=== PATIENT | female | born 1970 | race Caucasian/White ===

== ENCOUNTER 2018-02-03 17:29 | Emergency (ER) | payer OTHER ==
[~2018-02-03] VITALS: Ht 162.6 cm; Wt 81.7 kg
[~2018-02-03 17:29] MED LIST: AMBIEN 10 MG TA10 MG PO; BACTRIM 400-801 EACH PO; EFFEXOR XR150 MG PO; FLEXERIL PO; GRALISE300 MG PO; GRALISE600 MG PO; HYDROCODONE-APA1 TA1 PO; NORCO 5-325 TA1 EACH; NORCO 5-325 TA1 EACH PO; OXYCONTIN10 M1 PO; PHENERGAN 25 MG25 M1 PO; ROBAXIN500 MG PO; ZANAFLEX4 M1 PO; ZANTAC 150MG T150 M1 PO; ZYRTEC10 M2 PO
[2018-02-03] MEDS ORDERED: CAMBIA50 MG PO (17:39)
[2018-02-03] MEDS ORDERED: HYDROCODONE-AP1 EAC6 PO (18:03)
[2018-02-03 18:32] VITALS: BP 131/86
== END 2018-02-03 18:32 | disposition home or self-care (01) ==
LOC: M.ERS 17:29
DX: S82.431A Displaced oblique fracture of shaft of right fibula, initial encounter for closed fracture (principal); S82.54XA Nondisplaced fracture of medial malleolus of right tibia, initial encounter for closed fracture; Z90.710 Acquired absence of both cervix and uterus; Z90.49 Acquired absence of other specified parts of digestive tract; Z98.890 Other specified postprocedural states; W10.8XXA Fall (on) (from) other stairs and steps, initial encounter; Y93.89 Activity, other specified; Y92.89 Other specified places as the place of occurrence of the external cause; Y99.8 Other external cause status

== ENCOUNTER 2018-03-09 18:33 | Emergency (ER) | payer OTHER ==
[~2018-03-09] VITALS: Ht 162.6 cm; Wt 77.1 kg
[~2018-03-09 18:33] MED LIST changes: +CAMBIA50 MG PO; +HYDROCODONE-AP1 EAC6 PO
[2018-03-09] MEDS ORDERED: VISTARIL 25 MG25 M1 PO (18:52)
[2018-03-09 19:36] VITALS: BP 119/83
== END 2018-03-09 19:37 | disposition home or self-care (01) ==
LOC: M.ERS 18:33
DX: Z46.89 Encounter for fitting and adjustment of other specified devices (principal); M79.7 Fibromyalgia; G43.909 Migraine, unspecified, not intractable, without status migrainosus; Z90.710 Acquired absence of both cervix and uterus; Z90.49 Acquired absence of other specified parts of digestive tract

== ENCOUNTER 2018-08-16 23:59 | Inpatient (IN) | payer OTHER ==
[~2018-08-16] VITALS: Ht 162.6 cm; Wt 81.2 kg
[~2018-08-16 23:59] MED LIST changes: +VISTARIL 25 MG25 M1 PO
[2018-08-17] VITALS (9 sets, daily range): BP systolic 117–141; BP diastolic 63–95
[2018-08-17] MEDS ORDERED: RESTORIL30 MG PO (00:14)
[2018-08-17 00:26] LABS: URINE BILIRUBIN NEGATIVE (Negative); URINE BLOOD NEGATIVE (Negative); URINE CLARITY CLEAR; URINE COLOR YELLOW; URINE GLUCOSE-RANDOM 3+ (Negative); URINE KETONES NEGATIVE (Negative); URINE LEUKOCYTES NEGATIVE (Negative); URINE NITRITE NEGATIVE (Negative); URINE PROTEIN NEGATIVE (Negative); URINE UROBILINOGEN 0.2 E.U./dl (0.2-1.0)
[2018-08-17 00:35] LABS: AMP/METHAMP Negative (Negative); BARBITURATES Negative (Negative); BENZODIAZEPINES Negative (Negative); COCAINE Negative (Negative); METHADONE Negative (Negative); OPIATES Negative (Negative); PCP Negative (Negative); THC Negative (Negative)
[2018-08-17 00:36] LABS: ABSOLUTE BASOPHILS 0.1 thou/uL (0.0-0.2); ABSOLUTE EOSINOPHILS 0.1 thou/uL (0.0-0.7); ABSOLUTE LYMPHOCYTES 1.6 thou/uL (0.8-5.3); ABSOLUTE MONOCYTES 0.3 thou/uL (0.0-1.2); ABSOLUTE NEUTROPHILS 6.1 thou/uL (1.6-8.1); BASOPHILS 1.2 %; EOSINOPHILS 0.7 %; HEMATOCRIT 41.1 % (37.0-47.0); HEMOGLOBIN 14.1 gm/dL (12.0-15.0); LYMPHOCYTES 19.8 %; MCH 31.5 pg (26.0-34.0); MCHC 34.3 g/dL (28.0-37.0); MCV 91.9 fL (80.0-100.0); MONOCYTES 3.1 %; MPV 8.6 fl. (7.2-11.1); NUCLEATED RBCS 0 /100WBC; PLATELET COUNT* 330 thou/uL (150-400); POLYS 75.2 %; RBC 4.47 mil/uL (4.20-5.00); RDW-CV 12.7 % (10.5-14.5); WBC 8.2 thou/uL (4.0-11.0)
[2018-08-17 00:44] LABS: CALCIUM 8.6 mg/dL (8.5-10.1); POTASSIUM 4.7 mmol/L (3.5-5.1)
--- NOTE | 2018-08-17 06:27 | NUR ---
RECEIVED REPORT FROM ED NURSE. PT TRANSFERRED TO 205. PT A&OX4 AND RESTLESS. VSS. ADMISSION HISTORY AND PHYSICAL ASSESSMENT COMPLETED AND CHARTED. ORIENTED TO ROOM AND CALL LIGHT. PT COMPLAINED OF HIP AND ANKLE PAIN-PAIN MEDS GIVEN PER. ON INSULIN DRIP-TITRATED PER PROTOCOL. WOUNDS ON RIGHT ARM, RIGHT UPPER SHOULDER, LEFT EAR, AND ON UPPER LIP NOTED.BUG BITES CLAIMED BY PT. PHOTOGRAPH TAKEN. CALL LIGHT WITHIN REACH. BED IN LOW POSITION. BED ALARM ON.
[2018-08-17 08:47] LABS: HEMATOCRIT 40.3 % (37.0-47.0); HEMOGLOBIN 13.6 gm/dL (12.0-15.0); MCH 30.7 pg (26.0-34.0); MCHC 33.6 g/dL (28.0-37.0); MCV 91.4 fL (80.0-100.0); MPV 8.9 fl. (7.2-11.1); RBC 4.41 mil/uL (4.20-5.00); RDW-CV 12.7 % (10.5-14.5); WBC 10.6 thou/uL (4.0-11.0)
[2018-08-17 08:57] LABS: ALBUMIN 3.3 g/dL (3.4-5.0); CALCIUM 8.7 mg/dL (8.5-10.1); CREATININE 0.7 mg/dL (0.6-1.3); TOTAL BILIRUBIN 0.3 mg/dL (<0.1-1.0); TOTAL PROTEIN 7.4 g/dL (6.4-8.2)
[2018-08-17 08:58] LABS: POTASSIUM 3.7 mmol/L (3.5-5.1)
--- NOTE | 2018-08-17 09:34 | NUR ---
ASSUMED CARE OF PT THIS AM AROUND 0715- SWEEPING COMPOUND BLENDER IN PLACE ORDERED, TRACING ST THIS AM- UPON ASSESSMENT PT NOTED TO BE RESTING IN BED- PT A&O X4, ANXIOUS- CONTINENT OF BOWEL AND BLADDER- UP AD-PATRICE WITH STEADY GAIT NOTED- LCTA, RESP EVEN AND UN-LABORED- VSS, O2 SAT 96% ON RA- ABDOMEN SOFT/ROUND/NON-TENDER, BS X 4 QUADS- IV NOTED TO RIGHT AC INTACT, IVF INFUSSING PRESCIBED- PT NOTED TO BE Q1 HOUR ACCU CHECKS WITH INSULIN DRIP INFUSSING PRESCIBED THIS AM- INSULIN DRIP NOTED TO BE INFUSSING AT 8.5 THIS AM WITH 0800 BS NOTED TO BE 256- PER INSULIN PROTOCOL INSULIN DRIP THEN INCREASED TO 10UNITS/HR AT 0820, BUT THEN INSULIN DRIP NOTED TO BE D/C'D PER WITH SSI AND SCHEDULED LASNTUS ORDERED, BS THEN CHANGED TO ACHS- INSULIN DRIP D/C'D AT 0845- CARB CONTRO DIET IN PLACE WITH ORAL METFORMIN AND LANTUS GIVEN THIS AM PRESCIBED- PT NOTED TO HAVE REPORTED BUG BITES TO RUE/SHOULDER/AND UPPER LIP- RATES PAIN 6/10 TO BLE- REPOSITIONING IN PLACE-CALL LIGHT AND PERSONAL BELONGINGS WITH IN REACH- HOURLY ROUNDS IN PLACE R/T SAFETY/NEEDS- ALL NEEDS MET AT THIS TIME-WCTM
[2018-08-17] MEDS ORDERED: COMPLETE OMEGA1 EACH PO (16:54)
[2018-08-17] MEDS ORDERED: BENTYL 20 MG TA20 M1 PO (16:56)
[2018-08-17] MEDS ORDERED: TIZANIDINE HCL4 M1 PO (17:00)
[2018-08-17] MEDS ORDERED: TURMERIC500 M2 PO (17:00)
[2018-08-17] MEDS ORDERED: BIOTIN10000 MC1 PO (17:01)
[2018-08-17] MEDS ORDERED: OXYBUTYNIN 5 MG5 M2 PO (17:03)
--- NOTE | 2018-08-17 17:07 | NUR ---
PT CURRENTLY RESTING IN BED, EATING DINNER- LAWYER CRIMINAL IN PLACE ORDERED, TRACING SR- IV TO RIGHT AC INTACT AND SL- NEW 2O GAUGE IV PLACED THIS SHIFT RO LEFT HAND, IVF NOTED TO BE D/C'D THIS SHIFT- PT C/O BLE LEG PAIN THIS SHIFT, PRN PERCOCET AND GABAPENTIN GIVEN AT 1101; PT REPORTS MEDICATIONS TO BE EFFECTIVE- BLE US COMPLETED THIS SHIFT PRESCIBED, NEGATIVE FOR DVT NOTED ON RESULTS- BS MONITORED ORDERED, PO AND SSI GIVEN PRESCIBED- CALL LIGHT AND PERSONAL BELONGINGS WITH IN REACH- ALL NEEDS MET AT THIS TIME-WCTM
[2018-08-17] MEDS ORDERED: AMBIEN 5 MG TABL5 M1 PO ×2 (20:57→20:58)
[2018-08-17 21:06] LABS: GLYCOHEMOGLOBIN (HGB A1C) 8.4 % (4.8-5.6)
[2018-08-18] VITALS: BP 138/84
[2018-08-18 04:00] VITALS: BP 147/80
[2018-08-18 04:43] LABS: ABSOLUTE EOSINOPHILS 0.1 thou/uL (0.0-0.7); ABSOLUTE LYMPHOCYTES 3.5 thou/uL (0.8-5.3); ABSOLUTE MONOCYTES 0.4 thou/uL (0.0-1.2); ABSOLUTE NEUTROPHILS 4.8 thou/uL (1.6-8.1); BASOPHILS 0.3 %; HEMATOCRIT 39.6 % (37.0-47.0); HEMOGLOBIN 13.5 gm/dL (12.0-15.0); LYMPHOCYTES 39.5 %; MCV 91.2 fL (80.0-100.0); MONOCYTES 4.6 %; MPV 8.7 fl. (7.2-11.1); NUCLEATED RBCS 0 /100WBC; PLATELET COUNT* 330 thou/uL (150-400); POLYS 54.6 %; RBC 4.34 mil/uL (4.20-5.00); RDW-CV 13.4 % (10.5-14.5); WBC 8.7 thou/uL (4.0-11.0)
[2018-08-18 04:53] LABS: CALCIUM 8.8 mg/dL (8.5-10.1); CREATININE 0.8 mg/dL (0.6-1.3)
[2018-08-18 07:55] VITALS: BP 137/72
[2018-08-18 11:30] VITALS: BP 144/90
[2018-08-18 15:45] VITALS: BP 125/79
--- NOTE | 2018-08-18 18:10 | NUR ---
PT CURRENTLY RESTING IN BED, WATCHING TV- BRUSHER HAND INTACT INDICATED, TRACING SR- IV TO RIGHT AC D/C'D THIS SHIFT, LEFT HAND IV INTACT AND SL- BS MONITORED ORDERED, ORAL MEDICATIONS ALONG WITH SSI GIVEN PRESCIBED- BS NOTED TO BE MORE CONTROLED THIS SHIFT- GOOD PO INTAKE NOTED THIS SHIFT WITH MEALS- PRN PERCOCET GIVEN THIS SHIFT X2 AT 0822 AND 1805 FOR C/O HEADACHE, PT REPORTS MEDICATIONS TO BE EFFECTIVE- CALL LIGHT AND PERSONAL BELONGINGS WITH IN REACH- PT MAKES NEEDS KNOWN- ALL NEEDS MET AT THIS TIME-WCTM
[2018-08-18 20:00] VITALS: BP 131/93
[2018-08-19] VITALS: BP 130/76
[2018-08-19 04:00] VITALS: BP 126/88
[2018-08-19 04:45] LABS: ABSOLUTE BASOPHILS 0.1 thou/uL (0.0-0.2); ABSOLUTE EOSINOPHILS 0.1 thou/uL (0.0-0.7); ABSOLUTE LYMPHOCYTES 2.6 thou/uL (0.8-5.3); ABSOLUTE MONOCYTES 0.3 thou/uL (0.0-1.2); ABSOLUTE NEUTROPHILS 3.3 thou/uL (1.6-8.1); BASOPHILS 1.1 %; EOSINOPHILS 1.8 %; HEMATOCRIT 40.8 % (37.0-47.0); MCH 31.2 pg (26.0-34.0); MCHC 34.2 g/dL (28.0-37.0); MCV 91.1 fL (80.0-100.0); MONOCYTES 4.3 %; MPV 8.6 fl. (7.2-11.1); NUCLEATED RBCS 0 /100WBC; PLATELET COUNT* 325 thou/uL (150-400); POLYS 51.8 %; RBC 4.48 mil/uL (4.20-5.00); RDW-CV 13.6 % (10.5-14.5); WBC 6.4 thou/uL (4.0-11.0)
[2018-08-19 04:58] LABS: ALBUMIN 3.2 g/dL (3.4-5.0); CALCIUM 9.6 mg/dL (8.5-10.1); CREATININE 0.8 mg/dL (0.6-1.3); POTASSIUM 4.2 mmol/L (3.5-5.1); TOTAL BILIRUBIN 0.3 mg/dL (<0.1-1.0); TOTAL PROTEIN 6.8 g/dL (6.4-8.2)
--- NOTE | 2018-08-19 08:32 | NUR ---
PATIENT RESTING IN BED. REPORT GIVEN TO ONCOMING NURSE. WILL MONITOR.
--- NOTE | 2018-08-19 09:34 | NUR ---
VSS, ASSUMED CARE OF PT IN AM, ASSESSMENT PERFORMED AND CHARTED, FALL PRECAUTIONS IN PLACE AND CALL LIGHT IN RECAH, PT IS A&O4 ON RA, UP AD PATRICE, TRACING SR ON THE MONITOR, PT GOAL IS TO D/C TO HOME, AND GET EDUCATED ABOUT NEW MEDS, AT THIS TIME I HAVE D/C ORDERS, IV AND TELE MONITOR TAKEN OFF, I HAVE FILLED OUT D/C ORDERS, PROVITED D/C INFORMATION WITH NEW MED SCRIPTS, AND INFOR SHEETS, PT DENIES ANY QUESTIONS AT TIME OF D/C WILL FOLOW WITH PLAN OF CARE.
[2018-08-19 09:44] VITALS: BP 126/88
[2018-08-19] MEDS ORDERED: HUMALOG100 UNIT/1 SUBQ (09:52)
[2018-08-19] MEDS ORDERED: LANTUS SUBQ (09:54)
[2018-08-19] MEDS ORDERED: METFORMIN HCL500 MG PO (10:02)
== END 2018-08-19 12:30 | disposition home or self-care (01) | DRG 638 ==
LOC: M.ERS 23:59 → M.2W 08-17 03:30 → M.TBA-ER 08-17 03:30 → M.2W 08-17 05:01
PROVIDERS: Emergency Medicine; ADMIT Internal Medicine
DX: E11.00 Type 2 diabetes mellitus with hyperosmolarity without nonketotic hyperglycemic-hyperosmolar coma (NKHHC) (principal); E87.1 Hypo-osmolality and hyponatremia; E86.0 Dehydration; E11.40 Type 2 diabetes mellitus with diabetic neuropathy, unspecified; G47.00 Insomnia, unspecified; G25.81 Restless legs syndrome; M79.7 Fibromyalgia; G43.909 Migraine, unspecified, not intractable, without status migrainosus; Z90.49 Acquired absence of other specified parts of digestive tract; Z90.710 Acquired absence of both cervix and uterus; Z83.3 Family history of diabetes mellitus; Z87.81 Personal history of (healed) traumatic fracture; Z80.9 Family history of malignant neoplasm, unspecified; Z79.899 Other long term (current) drug therapy

== ENCOUNTER 2018-08-19 20:59 | Emergency (ER) | payer OTHER ==
[~2018-08-19] VITALS: Ht 162.6 cm; Wt 81.7 kg
[~2018-08-19 20:59] MED LIST changes: +AMBIEN 5 MG TABL5 M1 PO; +BENTYL 20 MG TA20 M1 PO; +BIOTIN10000 MC1 PO; +COMPLETE OMEGA1 EACH PO; +HUMALOG100 UNIT/1 SUBQ; +LANTUS SUBQ; +METFORMIN HCL500 MG PO; +OXYBUTYNIN 5 MG5 M2 PO; +RESTORIL30 MG PO; +TIZANIDINE HCL4 M1 PO; +TURMERIC500 M2 PO
[2018-08-19 21:54] LABS: ABSOLUTE BASOPHILS 0.1 thou/uL (0.0-0.2); ABSOLUTE EOSINOPHILS 0.1 thou/uL (0.0-0.7); ABSOLUTE LYMPHOCYTES 1.8 thou/uL (0.8-5.3); ABSOLUTE MONOCYTES 0.3 thou/uL (0.0-1.2); ABSOLUTE NEUTROPHILS 4.9 thou/uL (1.6-8.1); BASOPHILS 0.8 %; HEMATOCRIT 44.2 % (37.0-47.0); HEMOGLOBIN 15.1 gm/dL (12.0-15.0); MCH 30.8 pg (26.0-34.0); MCHC 34.1 g/dL (28.0-37.0); MCV 90.3 fL (80.0-100.0); MONOCYTES 4.4 %; MPV 8.3 fl. (7.2-11.1); NUCLEATED RBCS 0 /100WBC; PLATELET COUNT* 377 thou/uL (150-400); POLYS 68.8 %; RDW-CV 12.9 % (10.5-14.5); WBC 7.1 thou/uL (4.0-11.0)
[2018-08-19 22:06] LABS: CALCIUM 9.5 mg/dL (8.5-10.1); CREATININE 0.7 mg/dL (0.6-1.3); POTASSIUM 3.8 mmol/L (3.5-5.1)
[2018-08-19 22:10] LABS: ALBUMIN 3.8 g/dL (3.4-5.0); TOTAL BILIRUBIN 0.4 mg/dL (<0.1-1.0); TOTAL PROTEIN 8.3 g/dL (6.4-8.2)
[2018-08-20 00:34] VITALS: BP 134/91
== END 2018-08-20 00:36 | disposition home or self-care (01) ==
LOC: M.ERS 20:59
PROVIDERS: Nurse Practitioner Family
DX: R51 Headache (principal); M79.7 Fibromyalgia; G25.81 Restless legs syndrome; Z90.49 Acquired absence of other specified parts of digestive tract; Z90.710 Acquired absence of both cervix and uterus

== ENCOUNTER 2018-10-10 09:50 | Inpatient (IN) | payer OTHER ==
[2018-10-10] VITALS (7 sets, daily range): BP systolic 143–163; BP diastolic 76–103
[~2018-10-10] VITALS: Ht 162.6 cm; Wt 76.7 kg
[2018-10-10 10:30] LABS: URINE BILIRUBIN NEGATIVE (Negative); URINE BLOOD NEGATIVE (Negative); URINE CLARITY CLEAR; URINE COLOR YELLOW; URINE GLUCOSE-RANDOM NEGATIVE (Negative); URINE KETONES NEGATIVE (Negative); URINE LEUKOCYTES-REFLEX TRACE (Negative); URINE NITRITE-REFLEX NEGATIVE (Negative); URINE PROTEIN NEGATIVE (Negative); URINE SPECIFIC GRAVITY 1.015 (1.005-1.030); URINE UROBILINOGEN 0.2 E.U./dl (0.2-1.0)
[2018-10-10] MEDS ORDERED: NORCO 10-325 T1 EACH PO (10:30)
[2018-10-10 10:35] LABS: ABSOLUTE BASOPHILS 0.1 thou/uL (0.0-0.2); ABSOLUTE EOSINOPHILS 0.1 thou/uL (0.0-0.7); ABSOLUTE LYMPHOCYTES 2.5 thou/uL (0.8-5.3); ABSOLUTE MONOCYTES 0.5 thou/uL (0.0-1.2); ABSOLUTE NEUTROPHILS 5.2 thou/uL (1.6-8.1); BASOPHILS 0.6 %; EOSINOPHILS 0.9 %; HEMATOCRIT 43.5 % (37.0-47.0); HEMOGLOBIN 14.7 gm/dL (12.0-15.0); LYMPHOCYTES 29.3 %; MCH 30.3 pg (26.0-34.0); MCHC 33.8 g/dL (28.0-37.0); MCV 89.7 fL (80.0-100.0); MONOCYTES 6.5 %; MPV 8.4 fl. (7.2-11.1); NUCLEATED RBCS 0 /100WBC; PLATELET COUNT* 379 thou/uL (150-400); POLYS 62.7 %; RBC 4.85 mil/uL (4.20-5.00); RDW-CV 12.5 % (10.5-14.5); WBC 8.4 thou/uL (4.0-11.0)
[2018-10-10 10:47] LABS: BACTERIA-REFLEX 1-9 Few /HPF (None Seen); CASTS None Seen /LPF (None Seen); MUCUS 0-3 Light strn/LPF (None Seen); SQUAMOUS 0-3 Few /LPF (0-3); URINE RBC 0-2 Rare /HPF (0-2); URINE WBC-REFLEX 0-5 Rare /HPF (0-5)
[2018-10-10 10:48] LABS: CRYSTALS None Seen /LPF (None Seen)
[2018-10-10 10:51] LABS: ANION GAP 17 mmol/L (7-16); BUN 9 mg/dL (7-18); CALCIUM 9.3 mg/dL (8.5-10.1); CHLORIDE 104 mmol/L (98-107); CO2 20 mmol/L (21-32); CREATININE 0.8 mg/dL (0.6-1.3); GLUCOSE 153 mg/dL (70-99); POTASSIUM 3.4 mmol/L (3.5-5.1); PROTIME 10.7 Seconds (9.20-11.50); SODIUM 141 mmol/L (136-145)
[2018-10-10 11:02] LABS: ALBUMIN 3.6 g/dL (3.4-5.0); ALKALINE PHOSPHATASE 134 U/L (46-116); NT-PRO BRAIN NAT PEPTIDE 17 pg/mL (<300); SGOT 21 U/L (15-37); SGPT 30 U/L (30-65); TOTAL BILIRUBIN 0.1 mg/dL (<0.1-1.0); TOTAL PROTEIN 7.5 g/dL (6.4-8.2); TROPONIN-I LEVEL <0.06 ng/mL (<0.06)
[2018-10-10 11:17] LABS: AMP/METHAMP Negative (Negative); BARBITURATES Negative (Negative); BENZODIAZEPINES Negative (Negative); COCAINE Negative (Negative); METHADONE Negative (Negative); OPIATES POSITIVE (Negative); PCP Negative (Negative); THC Negative (Negative)
[2018-10-10 13:47] LABS: CSF CLARITY CLEAR; CSF COLOR COLORLESS; CSF RBC 0 /mm3; CSF WBC 3 /mm3 (0-10); VOLUME 12 ml
[2018-10-10 14:19] LABS: CSF GLUCOSE 79 mg/dl (40-70); CSF PROTEIN 49.8 mg/dl (15-45)
--- NOTE | 2018-10-10 15:41 | NUR ---
PT GIVEN SANDWICH AND PUDDING AT THIS TIME
--- NOTE | 2018-10-10 15:45 | NUR ---
PT UP TO BATHROOM AT THIS TIME, WALKING W/ STEADY GAIT. ATE ALL OF SANDWICH.
--- NOTE | 2018-10-10 17:33 | EKG ---
[place] [address] ELECTROCARDIOGRAM REPORT Name: JAZIEL HILL Room: [address] ADM IN M.R.#: [id number] Admission: 10/10/18 Attend Phys: Juan Serra MD Discharge: Date of : 68 Report #: [id number] THIS REPORT FOR: //name// [facility] ED Test Date: 2018-10-10 Test Time: 10:27:54 Pat Name: JAZIEL HILL Department: Room: [facility] Gender: F Truck Safety Inspector: Esmer KC : 1970 Requested By: Derik Cruz Order Number: [id number] MD: Vazquez Coyne Measurements Intervals [place] Rate: 107 P: 17 FL: 158 QRS: -10 QRSD: 94 T: 2 QT: 332 QTc: 443 Interpretive Statements Sinus tachycardia Abnormal R-wave progression, late transition Compared to ECG 12/09/2014 10:07:01 Sinus rhythm no longer present Electronically Signed On 10-10-2018 17:33:14 PARTNER MANAGER by Vazquez Coyne [email or web address] <ELECTRONICALLY SIGNED> By: Vazquez Coyne MD, FACC 10/10/18 1733 1027 1027 Vazquez Coyne MD, FACC /EPI
--- NOTE | 2018-10-10 19:34 | NUR ---
PT ADMITTED TO ROOM ICU 5 VIA CART FROM ED AT 1700. ASSESSMENT CHARTED. VSS AT THIS TIME. STAT ID CONSULT CALLED WITH NEW ORDERS RECEIVED. PT ALERT BUT VERY CONFUSED. FAMILY REPORTS THAT AT SHIFT CHANGE SHE IS MUCH MORE BACK TO HERSELF. 1:1 SITTER AT THE BEDSIDE THE PATIENT IS VERY IMPULSIVE.
[2018-10-11] VITALS: BP 146/84
[2018-10-11 04:00] VITALS: BP 107/58
[2018-10-11 04:18] LABS: HEMATOCRIT 38.9 % (37.0-47.0); MCH 30.4 pg (26.0-34.0); MCHC 33.5 g/dL (28.0-37.0); MCV 90.8 fL (80.0-100.0); MPV 8.2 fl. (7.2-11.1); RBC 4.28 mil/uL (4.20-5.00); RDW-CV 12.7 % (10.5-14.5)
--- NOTE | 2018-10-11 04:52 | NUR ---
ASSUMED CARE OF PT AT 1900 PT ALERT AND ORIENTED TO SELF AND PLACE. VS AND ASSESSMENT STABLE NSR ON THE MONITOR. PT HAD PAIN MEDS ORDERED AND AMBIEN FOR SLEEP PT REPORTED NO EFFECT FROM PAIN MEDS GAVE PRN TYLENOL X1 AND FLEXARIL AND PLACE HEATING PAD THEN PT SLEPT THROUGH THE NIGHT. WILL CONTINUE PLAN OF CARE.
[2018-10-11 05:01] LABS: ALBUMIN 3.1 g/dL (3.4-5.0); CALCIUM 8.8 mg/dL (8.5-10.1); CREATININE 0.7 mg/dL (0.6-1.3); MAGNESIUM 1.5 mg/dL (1.8-2.4); POTASSIUM 4.4 mmol/L (3.5-5.1); TOTAL BILIRUBIN 0.2 mg/dL (<0.1-1.0); TOTAL PROTEIN 6.5 g/dL (6.4-8.2)
[2018-10-11 06:01] VITALS: BP 149/91
[2018-10-11 08:00] VITALS: BP 135/62
--- NOTE | 2018-10-11 11:00 | NUR ---
SPOKE WITH PT, SHE IS ALERT AND ORIENTED AND ABLE TO ANSWER ALL QUESTIONS. PT LIVES AT HOME, HER 28 YEAR OLD DTR LIVES WITH HER. HER IS AN OVER THE ROAD SACK REPAIRER, IS HOME ONCE OR TWICE A MONTH. PT SAID SHE IS NORMALLY ACTIVE AND INDEPENDENT. DISCUSSED ROLE OF CASE MGT, WILL CONTINUE TO FOLLOW.
--- NOTE | 2018-10-11 11:35 | NUR ---
TRANSFER NOTE - REC PT FROM ICU AT THIS TIME. REPORT REC FROM FRANCISCO KOROMA. NO QUESTIONS. AGREE WITH HER ASSESSMENT AND DOCUMENTATION. WILL CONTINUE TO MONITOR.
[2018-10-11 12:19] VITALS: BP 133/90
--- NOTE | 2018-10-11 16:25 | NUR ---
SHIFT NOTE - PT HAS BEEN APPROPRIATE FOR THIS SHIFT. PT UP AD PATRICE TO BR. WILL CONTINUE TO MONITOR.
[2018-10-11 16:48] VITALS: BP 119/71
[2018-10-12 00:13] VITALS: BP 140/88
[2018-10-12 04:45] LABS: HEMATOCRIT 39.4 % (37.0-47.0); HEMOGLOBIN 13.3 gm/dL (12.0-15.0); MCH 30.8 pg (26.0-34.0); MCHC 33.7 g/dL (28.0-37.0); MCV 91.5 fL (80.0-100.0); MPV 8.6 fl. (7.2-11.1); RBC 4.3 mil/uL (4.20-5.00); RDW-CV 12.6 % (10.5-14.5); WBC 10.2 thou/uL (4.0-11.0)
[2018-10-12 04:59] LABS: CALCIUM 8.8 mg/dL (8.5-10.1); CREATININE 0.8 mg/dL (0.6-1.3); MAGNESIUM 1.8 mg/dL (1.8-2.4)
[2018-10-12 05:17] LABS: POTASSIUM 3.2 mmol/L (3.5-5.1)
--- NOTE | 2018-10-12 05:26 | NUR ---
ASSESSMENT COMPLETE. PT SLEPT MOST OF THE NIGHT WITHOUT ANY CONCERNS. PT GIVEN PAIN MEDICATION SCHEDULED. PT DENIES N/V. PT IS ALERT AND ORIENTED X4 THROUGHOUT THE NIGHT. PT IS ON ROOM AIR WITH [place] SATS. PT HAS IV IN RIGHT AC, SALINE LOCKED. RASH IMPROVING PER PT. PT IS UP AD PATRICE WITH STEADY GAIT. SEE ASSESSMENT AND VITALS FOR OTHER DETAILS. CALL LIGHT WITHIN REACH, WILL CONTINUE TO MONITOR.
[2018-10-12 09:20] VITALS: BP 131/91
[2018-10-12 16:00] VITALS: BP 117/71
--- NOTE | 2018-10-12 16:26 | NUR ---
PATIENT UP AD PATRICE THIS SHIFT, NO DIFFICULTY NOTED. SCHED VICODIN GIVEN WITH FOR ABD PAIN WITH GOOD RELIEF NOTED. IV ABX INFUSED THIS AM ORDERED. IV ABX DC'D THIS AFTERNOON PER ID. INSULIN GIVEN WITH MEALS WHEN REQUIRED.
--- NOTE | 2018-10-13 04:11 | NUR ---
ASSESSMENT COMPLETE. PT DENIES ANY CONCERNS DURING THE NIGHT. PT IS ALERT AND ORIENTED X4. PAIN MEDICATION GIVEN SCHEDULED. PT DENIES N/V. VITAL SIGNS STABLE, AFEBRILE. PT IS UP AD PATRICE WITH A STEADY GAIT. PT IS ON ROOM AIR. SKIN INTACT, RASH IMPROVING. LAST BM 10/10, PT REPORTS THIS IS NORMAL FOR HER AND DENIES CONSTIPATION. SEE ASSESSMENT AND VITALS FOR OTHER DETAILS. CALL LIGHT WITHIN REACH, WILL CONTINUE PLAN OF CARE.
[2018-10-13 07:40] VITALS: BP 127/85
[2018-10-13] MEDS ORDERED: JANUVIA100 MG PO (11:41)
[2018-10-13 11:46] VITALS: BP 127/85
--- NOTE | 2018-10-13 12:37 | NUR ---
PATIENT OK TO DISCHARGE HOME THIS SHIFT. CLARIFIED HOME MEDICATIONS WITH PATIENT AND DR. NICOLAS. SPOKE WITH DR. VILLATORO FROM ID AND OK FOR PATIENT TO DISCHARGE HOME. IV DC'D. VERBALIZES UNDERSTANDING OF PAPERWORK, NO SCRIPTS NOTED. PATIENT AMBULATED OUT WITH THIS NURSE AND ALL BELONGINGS.
--- NOTE | 2018-10-14 07:59 | CON ---
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 HISTORY OF PRESENT ILLNESS: The patient is a 48-year-old woman with longstanding issues of chronic pain with opioid use. Actual does not remember significant amount of the events leading up to present. She was admitted through the emergency room with marked mental status changes, nonspecific and not feeling well. Apparently had a headache. It is not clear if she had neck stiffness and some nausea. She notes this has been a little bit longer period with anorexia and poor p.o. intake. She attributes this to lack of appetite, at times food tasting bad and some nausea. May have felt feverish. She typically never feels warm. In fact, she states she does not even own a coat. She has had experienced some chills. It is not clear if she had any significant pulmonary related complaints. Due to concern about possible meningitis, she underwent lumbar puncture, which did show clear colorless fluid, 3 white cells, no red cells, glucose of 79, protein of 49.8. Lactic acid was elevated at 2.4. Urinalysis otherwise unremarkable as was chest x-ray. She was started on empiric antimicrobial therapy due to concern about CSF bacterial infection. She was placed in the intensive care unit. In addition to that, she had somewhat of an ecchymotic type eruption over the upper trunk. It since faded dramatically. In terms of history, she does not work outside the home. She is not aware of any exposure history. Does have a cat and a dog. No recent travel. ALLERGIES: None known. MEDICATIONS: Include enoxaparin, hydrocodone, vancomycin, zolpidem, acyclovir, doxycycline, gabapentin, oxybutynin, venlafaxine, famotidine, ceftriaxone, p.r.n. analgesics, and antiemetics. 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 [address] CONSULTATION Name: JAZIEL HILL Room: [address]#: [id number] Admission: 10/10/18 Attend Phys: Juan Serra MD Discharge: 10/13/18 Date of : 68 Report #: [id number] SOCIAL HISTORY: Nonsmoker. No illicit drug use. No ethanol. FAMILY HISTORY: Not contributory. REVIEW OF SYSTEMS: A 10-point review of systems other than the above, was unremarkable. PHYSICAL EXAMINATION: GENERAL: She appears ill, not overtly toxic, somewhat undernourished. VITAL SIGNS: Temperature 98.1, pulse 70, respirations 18, blood pressure is 133/90. SKIN: Warm, dry, no rashes. NECK: Supple. HEENT: There is no conjunctival injection. No oropharyngeal lesions. LUNGS: Generally clear to auscultation. HEART: Regular. I do not appreciate any murmur. ABDOMEN: Soft, nontender, nondistended. There is no organomegaly. EXTREMITIES: Her distal lower extremities really have no edema. She did point out site of previous eruption that seemed to have markedly faded. There is no appreciation of large confluent lesions as described above at the time of admission. LABORATORY DATA: Blood cultures are sterile thus far. Electrolytes: Sodium 141, potassium 4.4, chloride 107, bicarbonate is 21, anion gap of 13. BUN and creatinine 10 and 0.7, glucose of 158. LFTs unremarkable. Albumin 3.1, total protein 6.5. Estimated GFR of 89. Lactic acid of 2.0. CBC: White count of 10.0, H and H 13.0 and 38.9, platelets of 318. CSF count noted above. ASSESSMENT: Marked encephalopathy with associated hallucinations where the evidence favors against certainly bacterial meningitis and response to therapy is not likely due to the antibiotics given the dramatic improvement. We will pare down the approach. We will await the culture of the cerebrospinal fluid. There is some speculation about perhaps related to the toxicity to medicines. When questioned although, she mentioned, her father had syndrome, dying in 2001 or so. She never participated in any sort of activities on the farm and actually does not live there anymore. I think it is less likely she has any sort of zoonosis. At this point, the rash was intriguing, maybe viral etiology. We will await cerebrospinal fluid results. <ELECTRONICALLY SIGNED> By: Izaiah De Guzman MD 10/14/18 0759 1349 [id number] De Guzman MD /nt
[2018-10-16 21:07] LABS: HSV 1 DNA Negative (Negative); HSV 2 DNA Negative (Negative)
== END 2018-10-13 12:39 | disposition home or self-care (01) | DRG 871 ==
LOC: M.ERS 09:50 → M.TBA-ER 13:51 → M.ICU 13:51 → M.3W 10-11 11:33
PROVIDERS: Emergency Medicine Emergency Medical Services; ADMIT Internal Medicine
PROC: 009U3ZX Drainage of Spinal Canal, Percutaneous Approach, Diagnostic (ICD-10-PCS; principal; 2018-10-10)
DX: A41.9 Sepsis, unspecified organism (principal); G92 Toxic encephalopathy; G04.90 Encephalitis and encephalomyelitis, unspecified; F11.20 Opioid dependence, uncomplicated; M79.7 Fibromyalgia; G43.909 Migraine, unspecified, not intractable, without status migrainosus; G25.81 Restless legs syndrome; Z90.49 Acquired absence of other specified parts of digestive tract; Z90.710 Acquired absence of both cervix and uterus; Z79.4 Long term (current) use of insulin; Z79.84 Long term (current) use of oral hypoglycemic drugs; Z79.899 Other long term (current) drug therapy; Z83.3 Family history of diabetes mellitus; Z80.9 Family history of malignant neoplasm, unspecified

== ENCOUNTER 2019-02-10 14:56 | Emergency (ER) | payer OTHER ==
[~2019-02-10] VITALS: Ht 162.6 cm; Wt 77.1 kg
[~2019-02-10 14:56] MED LIST changes: +JANUVIA100 MG PO; +NORCO 10-325 T1 EACH PO
[2019-02-10 15:20] LABS: ABSOLUTE BASOPHILS 0.1 thou/uL (0.0-0.2); ABSOLUTE LYMPHOCYTES 1.8 thou/uL (0.8-5.3); ABSOLUTE MONOCYTES 0.3 thou/uL (0.0-1.2); ABSOLUTE NEUTROPHILS 6.7 thou/uL (1.6-8.1); BASOPHILS 0.8 %; EOSINOPHILS 0.4 %; HEMATOCRIT 46.8 % (37.0-47.0); HEMOGLOBIN 16.1 gm/dL (12.0-15.0); LYMPHOCYTES 20.2 %; MCH 30.5 pg (26.0-34.0); MCHC 34.5 g/dL (28.0-37.0); MCV 88.4 fL (80.0-100.0); MONOCYTES 3.3 %; MPV 7.8 fl. (7.2-11.1); NUCLEATED RBCS 0 /100WBC; PLATELET COUNT* 454 thou/uL (150-400); POLYS 75.3 %; WBC 8.9 thou/uL (4.0-11.0)
[2019-02-10 15:51] LABS: ALBUMIN 3.8 g/dL (3.4-5.0); ALKALINE PHOSPHATASE 111 U/L (46-116); ANION GAP 10 mmol/L (7-16); BUN 13 mg/dL (7-18); CALCIUM 9.7 mg/dL (8.5-10.1); CHLORIDE 102 mmol/L (98-107); CO2 25 mmol/L (21-32); CREATININE 0.8 mg/dL (0.6-1.3); GLUCOSE 156 mg/dL (70-99); LIPASE 131 U/L (73-393); POTASSIUM 3.7 mmol/L (3.5-5.1); SGOT 44 U/L (15-37); SGPT 56 U/L (30-65); SODIUM 137 mmol/L (136-145); TOTAL BILIRUBIN 0.5 mg/dL (<0.1-1.0); TOTAL PROTEIN 8.4 g/dL (6.4-8.2); TROPONIN-I LEVEL <0.06 ng/mL (<0.06)
[2019-02-10 17:17] LABS: URINE BILIRUBIN NEGATIVE (Negative); URINE BLOOD NEGATIVE (Negative); URINE CLARITY CLEAR; URINE COLOR YELLOW; URINE GLUCOSE-RANDOM NEGATIVE (Negative); URINE KETONES NEGATIVE (Negative); URINE LEUKOCYTES-REFLEX NEGATIVE (Negative); URINE NITRITE-REFLEX NEGATIVE (Negative); URINE PROTEIN TRACE (Negative); URINE SPECIFIC GRAVITY <= 1.005 (1.005-1.030); URINE UROBILINOGEN 0.2 E.U./dl (0.2-1.0)
[2019-02-10] MEDS ORDERED: ZOFRAN ODT4 MG PO (17:19)
[2019-02-10 17:40] VITALS: BP 124/79
== END 2019-02-10 17:42 | disposition home or self-care (01) ==
LOC: M.ERS 14:56
PROVIDERS: Physician Assistant
DX: R11.2 Nausea with vomiting, unspecified (principal); R10.84 Generalized abdominal pain; M79.7 Fibromyalgia; G43.909 Migraine, unspecified, not intractable, without status migrainosus; G25.81 Restless legs syndrome; E11.9 Type 2 diabetes mellitus without complications; Z90.49 Acquired absence of other specified parts of digestive tract; Z90.710 Acquired absence of both cervix and uterus; Z98.890 Other specified postprocedural states

== ENCOUNTER 2019-06-16 08:45 | Emergency (ER) | payer OTHER ==
[~2019-06-16] VITALS: Ht 162.6 cm; Wt 77.1 kg
[~2019-06-16 08:45] MED LIST changes: +ZOFRAN ODT4 MG PO
[2019-06-16] MEDS ORDERED: OZEMPIC0.25 MG/0. SUBQ (08:54)
[2019-06-16 09:22] LABS: ABSOLUTE BASOPHILS 0.1 thou/uL (0.0-0.2); ABSOLUTE EOSINOPHILS 0.1 thou/uL (0.0-0.7); ABSOLUTE LYMPHOCYTES 2.6 thou/uL (0.8-5.3); ABSOLUTE MONOCYTES 0.5 thou/uL (0.0-1.2); ABSOLUTE NEUTROPHILS 4.5 thou/uL (1.6-8.1); BASOPHILS 0.9 %; EOSINOPHILS 1.7 %; HEMATOCRIT 45.8 % (37.0-47.0); HEMOGLOBIN 15.8 gm/dL (12.0-15.0); LYMPHOCYTES 33.6 %; MCH 30.5 pg (26.0-34.0); MCHC 34.5 g/dL (28.0-37.0); MCV 88.3 fL (80.0-100.0); MONOCYTES 5.8 %; MPV 8.1 fl. (7.2-11.1); NUCLEATED RBCS 0 /100WBC; PLATELET COUNT* 342 thou/uL (150-400); RBC 5.19 mil/uL (4.20-5.00); RDW-CV 12.9 % (10.5-14.5); WBC 7.8 thou/uL (4.0-11.0)
[2019-06-16 09:30] LABS: ANION GAP 11 mmol/L (7-16); BUN 17 mg/dL (7-18); CALCIUM 9.9 mg/dL (8.5-10.1); CHLORIDE 97 mmol/L (98-107); CO2 27 mmol/L (21-32); CREATININE 0.8 mg/dL (0.6-1.3); GLUCOSE 171 mg/dL (70-99); POTASSIUM 3.7 mmol/L (3.5-5.1); SODIUM 135 mmol/L (136-145)
[2019-06-16 09:39] LABS: ALBUMIN 3.9 g/dL (3.4-5.0); ALKALINE PHOSPHATASE 96 U/L (46-116); LIPASE 183 U/L (73-393); SGOT 77 U/L (15-37); SGPT 86 U/L (30-65); TOTAL BILIRUBIN 0.5 mg/dL (<0.1-1.0); TOTAL PROTEIN 8.3 g/dL (6.4-8.2); TROPONIN-I LEVEL <0.06 ng/mL (<0.06)
[2019-06-16 09:47] LABS: URINE BLOOD NEGATIVE (Negative); URINE CLARITY CLEAR; URINE COLOR YELLOW; URINE GLUCOSE-RANDOM NEGATIVE (Negative); URINE KETONES NEGATIVE (Negative); URINE NITRITE-REFLEX NEGATIVE (Negative); URINE PROTEIN TRACE (Negative)
[2019-06-16 09:50] LABS: ICTOTEST (BILI CONFIRMATORY) Negative (Negative); URINE BILIRUBIN 1+ (Negative); URINE LEUKOCYTES-REFLEX 2+ (Negative)
[2019-06-16 09:58] LABS: CASTS None Seen /LPF (None Seen); CRYSTALS None Seen /LPF (None Seen); MUCUS None Seen strn/LPF (None Seen); SQUAMOUS 4-10 Moderate /LPF (0-3); URINE RBC 3-10 Few /HPF (0-2)
[2019-06-16 10:56] VITALS: BP 126/85
--- NOTE | 2019-06-16 16:16 | EKG ---
[place] [address] ELECTROCARDIOGRAM REPORT Name: JAZIEL HILL Room: [facility]#: [id number] Admission: 06/16/19 Attend Phys: Discharge: 06/16/19 Date of : 68 Report #: [id number] THIS REPORT FOR: //name// [facility] Test Date: 2019-06-16 Test Time: 09:04:45 Pat Name: JAZIEL SHERMANKINS Department: Room: Gender: F Collection Supervisor: : 1970 Requested By: Justen Parsk Order Number: [id number] MD: Carlos Keith Measurements Intervals [place] Rate: 90 P: 19 NM: 126 QRS: 58 QRSD: 98 T: 37 QT: 359 QTc: 440 Interpretive Statements Sinus rhythm Borderline low voltage, extremity leads Abnormal R-wave progression, late transition Baseline wander in lead(s) V1,V2 Compared to ECG 10/10/2018 10:27:54 Sinus tachycardia no longer present Electronically Signed On 06-16-2019 16:16:11 CDT by Carlos Keith [email or web address] <ELECTRONICALLY SIGNED> By: Carlos Keith MD, FACC 06/16/19 1616 0904 0904 Carlos Keith MD, [facility] /EPI
== END 2019-06-16 10:56 | disposition home or self-care (01) ==
LOC: M.ERS 08:45
PROVIDERS: Family Medicine
DX: R10.11 Right upper quadrant pain (principal); R10.12 Left upper quadrant pain; R10.13 Epigastric pain; R10.84 Generalized abdominal pain; G43.909 Migraine, unspecified, not intractable, without status migrainosus; E11.9 Type 2 diabetes mellitus without complications; R61 Generalized hyperhidrosis; R19.7 Diarrhea, unspecified; R11.2 Nausea with vomiting, unspecified; Z90.710 Acquired absence of both cervix and uterus; Z79.899 Other long term (current) drug therapy

== ENCOUNTER 2020-05-03 14:04 | Emergency (ER) | payer OTHER ==
[~2020-05-03] VITALS: Ht 162.6 cm; Wt 68.0 kg
[~2020-05-03 14:04] MED LIST changes: +OZEMPIC0.25 MG/0. SUBQ
[2020-05-03] MEDS ORDERED: FAMOTIDINE 10 M10 MG PO (14:14)
[2020-05-03] MEDS ORDERED: LANTUS SUBQ (14:14)
[2020-05-03 14:40] LABS: HEMATOCRIT 43.8 % (37.0-47.0); HEMOGLOBIN 15.1 gm/dL (12.0-15.0); MCH 30.7 pg (26.0-34.0); MCHC 34.6 g/dL (28.0-37.0); MCV 88.9 fL (80.0-100.0); MPV 7.7 fl. (7.2-11.1); RBC 4.93 mil/uL (4.20-5.00); RDW-CV 12.7 % (10.5-14.5)
[2020-05-03 14:41] LABS: URINE BILIRUBIN NEGATIVE (Negative); URINE BLOOD NEGATIVE (Negative); URINE CLARITY CLEAR; URINE COLOR YELLOW; URINE GLUCOSE-RANDOM NEGATIVE (Negative); URINE KETONES NEGATIVE (Negative); URINE LEUKOCYTES 1+ (Negative); URINE NITRITE NEGATIVE (Negative); URINE PROTEIN NEGATIVE (Negative)
[2020-05-03 14:46] LABS: CALCIUM 9.7 mg/dL (8.5-10.1); CREATININE 0.8 mg/dL (0.6-1.3); POTASSIUM 3.8 mmol/L (3.5-5.1)
[2020-05-03 14:48] LABS: BACTERIA >30 Many /HPF (None Seen); CASTS None Seen /LPF (None Seen); CRYSTALS None Seen /LPF (None Seen); MUCUS >6 Heavy strn/LPF (None Seen); SQUAMOUS >10 Many /LPF (0-3); URINE RBC 0-2 Rare /HPF (0-2); URINE WBC 6-15 Few /HPF (0-5)
[2020-05-03 14:50] LABS: ALBUMIN 3.5 g/dL (3.4-5.0); TOTAL BILIRUBIN 0.3 mg/dL (<0.1-1.0); TOTAL PROTEIN 8.6 g/dL (6.4-8.2)
[2020-05-03 14:50] LABS: AMP/METHAMP Negative (Negative); BARBITURATES Negative (Negative); BENZODIAZEPINES POSITIVE (Negative); COCAINE Negative (Negative); METHADONE Negative (Negative); OPIATES POSITIVE (Negative); PCP Negative (Negative); THC Negative (Negative)
[2020-05-03 15:11] LABS: SALICYLATE < 2.8 mg/dL (2.8-20.0)
[2020-05-03 15:13] LABS: ACETAMINOPHEN < 2 ug/mL (10-30); ALCOHOL < 10 mg/dL (<10)
[2020-05-04 09:56] VITALS: BP 162/66
== END 2020-05-04 09:57 | disposition home or self-care (01) ==
LOC: M.ERS 14:04
PROVIDERS: Personal Emergency Response Attendant
DX: F32.9 Major depressive disorder, single episode, unspecified (principal); R45.851 Suicidal ideations; G43.909 Migraine, unspecified, not intractable, without status migrainosus; E11.9 Type 2 diabetes mellitus without complications; Z90.710 Acquired absence of both cervix and uterus; Z90.89 Acquired absence of other organs; Z98.51 Tubal ligation status; Z79.4 Long term (current) use of insulin; Z79.899 Other long term (current) drug therapy; Z79.84 Long term (current) use of oral hypoglycemic drugs